=== PATIENT | female | born 1990 | race Caucasian/White ===

== ENCOUNTER 2021-05-19 07:40 | Outpatient (CLI) | payer OTHER, SELFPAY ==
--- NOTE | ~2021-05-19 | XR_ITS ---
EXAMINATION: XR UGIAC wo kub DATE: 05/19/2021 08:48 INDICATION: Gastroesophageal reflux TECHNIQUE: Thick barium contrast with gas effervescent crystals were administered orally. Fluoroscop ic images of the esophagus, stomach, and proximal duodenum were obtained in various projections. The reafter, overhead images of the abdomen were performed. 0.8 minutes of fluroscopy. 56 fluoroscopic im ages. FINDINGS: The esophagus is normal in caliber, without mucosal lesions or strictures. There is normal esophagea l peristalsis. There is a small hiatal hernia. *Esophageal reflux witnessed during the course of the study. The gastric folds are normal. The proximal duodenum is also normal in appearance. IMPRESSION: 1. Small sliding hiatal hernia with gastroesophageal reflux. Reviewed, dictated and finalized at location A. SON OFFICER
--- NOTE | ~2021-05-19 | XR_ITS ---
EXAMINATION: XR chest 2V EXAM DATE: 05/19/2021 08:51 INDICATION: SOB TECHNIQUE: Frontal and lateral projections of the chest obtained and reviewed. There is no prior shonna dy for comparison. FINDINGS: The lungs are clear. There are no pleural effusions. The cardiomediastinal silhouette is within normal limits. There is no pneumothorax suspected. The bones and soft tissues are unremarkab le. Barium within the stomach from upper GI performed same time. IMPRESSION: Normal chest x-ray exam. Reviewed, dictated and finalized at location B. OR QUALITATIVE RESEARCHER IMPRESSION: Normal chest x-ray exam.
== END 2021-05-19 07:41 | disposition home or self-care (01) ==
PROVIDERS: PCP Emergency Medicine; Visit Provider Emergency Medicine
DX: K21.9 Gastro-esophageal reflux disease without esophagitis (principal); K44.9 Diaphragmatic hernia without obstruction or gangrene
CPT/HCPCS: 71046; 74246

== ENCOUNTER 2023-04-28 10:39 | Emergency (ER) | payer OTHER, SELFPAY ==
--- NOTE | 2023-04-28 10:41 | ED.URI ---
HPI - URI/Sore Throat General Chief Complaint: Upper Respiratory Infection Stated Complaint: SORE THROAT/COUGH Time Seen by Provider: 04/28/23 10:53 Source: patient and RN notes reviewed Mode of arrival: ambulatory Limitations: no limitations History of Present Illness HPI Narrative: 33-year-old female presents with concern for 2-3 day history of sore throat, headache, body aches, fatigue, productive cough, low-grade temperature. Reports she has been taking Tylenol. Reports she traveled recently. MD elicited complaint: cough and sore throat Related Data Allergies Allergy/AdvReac Type Severity Reaction Status Date / Time No Known Allergies Allergy Verified 04/28/23 10:54 Review of Systems Review of Systems: CONSTITUTIONAL: Reports malaise, fatigue fever. EYES: Denies visual changes, redness, or discharge. ENT: Reports rhinorrhea, congestion, sinus pain, otalgia and sore throat. CARDIOVASCULAR: Denies chest pain, palpitations, or edema. RESPIRATORY: Reports cough. Denies dyspnea. GASTROINTESTINAL: Denies abdominal pain, nausea, vomiting, diarrhea SKIN: Denies rash or itching. MUSCULOSKELETAL: Reports myalgia. NEUROLOGIC: Reports headache. All systems reviewed & are unremarkable except as noted in HPI and below PMFSH Comments At time of signature, agree with nursing past medical, surgical, social and family history. There is no relevant family history pertinent to the presenting complaint Exam Narrative: GENERAL: Well-appearing, well-nourished, and in no acute distress. HEAD: Normocephalic EYES: PERRLA, conjunctivae clear ENT: Nares clear, turbinates edematous and erythematous, clear discharge. Mucous membranes moist. TM pearly parada with dull light reflex bilaterally; no tragal tenderness. Oropharynx not erythematous without lesions. Tonsils not enlarged and without exudate, no drooling, no hoarseness, no trismus, uvula midline. NECK: Supple. No lymphadenopathy CHEST: Clear to auscultation, breath sounds equal. No wheezing, rhonchi, rales, or stridor. No respiratory distress, speaks in full sentences. HEART: Regular rate and rhythm. No murmur heard. SKIN: Warm, dry, no rash. NEURO: Alert and oriented x3. PSYCH: Normal mood and affect Course Course Emergency Course: Patient is aware of diagnosis, understands and agrees to treatment plan. Anticipatory guidance given. Patient agrees to follow-up as directed and is aware of reasons to seek care at the emergency department. Portions of this record may have been created with voice recognition software Level of Care: [facility] Visit Vital Signs Vital signs: Reviewed. MDM - URI/Sore Throat MDM Narrative Medical decision making narrative: Differential diagnosis considered: [place] virus, strep pharyngitis, allergic rhinitis, upper respiratory tract infection, sinusitis, rhinosinusitis, nasopharyngitis. viral pharyngitis, otitis media, otitis externa, pneumonia, bronchitis, viral cough syndrome, viral syndrome, and influenza. Exam findings show no acute concerns or changes; patient is non-toxic appearing and is in no distress. Patient is appropriate for outpatient treatment and follow-up. Lab Data Attestation: I reviewed the patient's lab results. Critical Care Time Critical Care Time Critical Care Time: No Discharge Plan Discharge Clinical Impression: Upper respiratory infection Patient Disposition: Home, Self-Care Condition: Stable Instructions: Upper Respiratory Infection (ED) Additional Instructions: Your rapid COVID and flu tests are negative Your rapid strep swab was negative today at [facility]. A throat culture will be sent to the laboratory for further testing. If the test is positive, you will receive a phone call within 48 hours and an appropriate antibiotic will be initiated at that time. Your symptoms are likely due to a viral illness, which is not treated with antibiotics. Viral symptoms can be present for up to a few weeks.
[2023-04-28 10:45] VITALS: BP 110/80; PULSE 120; RESP 16; TEMP 37.2; O2SAT 99
== END 2023-04-28 11:08 | disposition home or self-care (01) ==
PROVIDERS: Emergency Provider Nurse Practitioner; PCP Emergency Medicine
DX: J06.9 Acute upper respiratory infection, unspecified (principal)
CPT/HCPCS: 87081; 87804; 87880; 99213; G0463

== ENCOUNTER 2024-03-29 15:10 | Outpatient (CLI) | payer OTHER, SELFPAY ==
[2024-03-29 16:23] LABS: Thyroid Stimulating Hormone 0.974 uIU/mL (0.465-4.680)
[2024-03-29 19:25] LABS: Hemoglobin A1C 4.3 % (<5.7)
[2024-03-31 04:47] LABS: Progesterone 2.2 ng/mL
[2024-04-02 16:09] LABS: Anti Mullerian Hormone,Female 0.38 ng/mL (0.36-10.07)
== END 2024-03-29 15:11 | disposition home or self-care (01) ==
LOC: ANHLAB 15:11
PROVIDERS: PCP Emergency Medicine; Visit Provider Student in an Organized Health Care Education/Training Program
DX: N96 Recurrent pregnancy loss (principal)
CPT/HCPCS: 36415; 82670; 83001; 83036; 84144; 84403; 84443

== ENCOUNTER 2024-05-01 16:52 | Outpatient (CLI) | payer OTHER, SELFPAY ==
--- OUTSIDE RECORDS SUMMARY | 2024-05-01 16:56 | XMS_ITS | Continuity of Care Document ---
Author Organization [facility] Address [address] [place] [address] [place] [address] Phone Care Team Providers Care Back Tender Insulation Board Name Role Phone Tristan Colunga MD Unavailable Unavailable Allergies, Adverse Reactions, Alerts Substance Reaction Status Criticality No Known Allergies Active No Inform ation Medications Medication Instructions Dosage Effective Dates (start - stop) Status Comments buspirone 5 mg tablet take 1 tablet by oral route 2 times every day 5 MG - Active for anxiety, avoid driving or operate machines omeprazole 40 mg capsule,delayed release take 1 capsule by oral route every day before a meal 40 MG - Active Ventolin HFA 90 mcg/actuation aerosol inhaler inhale 2 puff by inhalation route every 4 - 6 hours as needed as needed - Active PRN for sob Procedures Procedure Date OFFICE/OUTPATIENT VISIT, EST OFFICE/OUTPATIENT VISIT, EST OFFICE/OUTPATIENT VISIT, EST OFFICE/OUTPATIENT VISIT, EST OFFICE/OUTPATIENT VISIT, EST PREV VISIT, NEW, AGE 18-39 Advance Directives Directive Yes / No Effective Date File Name No Information Encounters Encounter Description Practice Location Reason(s) For Visit Diagnoses Date Provider Providers Copied on Encounter OFFICE/OUTPA TIENT VISIT, EST [facility], [address] [place], [id number], tel:[phone] [facility] sore throat1 (chief complaint) sob (chief complaint) Acute pharyngitisDyspnea 2 Keanu Hudson. [address] [place], [id number] , [place]. tel:[phone] OFFICE/OUTPA TIENT VISIT, [facility], [address] [place], [id number], tel:[phone] [facility] GERD1 (chief complaint) sob1 (chief complaint) anxiety1 (chief complaint) Chest painGERD w/o esophagitisDyspneaG eneralized Anxiety Disorder 2 Keanu Hudson. [address], [place], [place], [id number] , [place]. tel:[phone] OFFICE/OUTPA TIENT VISIT, [facility], [address] [place], [address], tel:[phone] [facility] fatigue1 (chief complaint) sob (chief complaint) chest pain1 (chief complaint) GERD1 (chief complaint) Chest painDyspneaGERD w/o esophagitisSleep apnea 2 Keanu Hudson. [address], [place], [place], [id number] , [place]. tel:[phone] OFFICE/OUTPA TIENT VISIT, [facility], [address] [place], [address], [place] tel:[phone] [facility] fatigue1 (chief complaint) anxiety1 (chief complaint) GERD1 (chief complaint) iron (chief complaint) FatigueGERD w/o esophagitisGenerali zed Anxiety DisorderDisorder of iron metabolism, unspecified 2 Keanu Hudson. [address], [place], [place], [address] , [place]. tel:[phone] OFFICE/OUTPA TIENT VISIT, [facility], [address] [place], [id number], [place] tel:[phone] [facility] anxiety1 (chief complaint) GERD1 (chief complaint) chest pain1 (chief complaint) sob1 (chief complaint) Generalized Anxiety DisorderDyspneaGERD w/o esophagitisChest painFatigue 2 Keanu Hudson. [address], [place], [place], [id number] , [place]. tel:[phone] PREV VISIT, NEW, AGE 18-39 [facility], [address], [place], [place], [id number], [place] tel:[phone] [facility] physical (chief complaint) Encounter for general adult medical examination without abnormal findings 2 Keanu Hudson. [address], [place], [place], [address] , [place]. tel:[phone] Family History Family Member Type Diagnosis Age At Onset Mother Problem Alive and well Sister Problem Alive and well Father Problem Alive and well Payers Payer name Insurance type Covered green party ID Authoriza tion(s) No Information Social History Type Description Quantity Date Captured Comments Alcohol Use Details beer & wine Caffeine Use Details Unknown Tobacco Use Status Smoker Smoking Status Current every day smoker 2021 Sex Female Vital Signs Date / Time: Height Weight BMI Pulse Rate Blood Pressure Temperature Respiratory Rate Body Surface Area Head Circumference BMI percentile Pulse Ox Inhaled Ox 4:05 PM 64.00 in 136.00 lbs 23.3 4 kg/m eter (2) 61 /min 110/66 mm[Hg] 98.5 F 16 /min Chief Complaint And Reason For Visit From encounter dated '12/02/2021 16:04'. sore throat1 (chief complaint). Description: Pt c/o acute sore throat since this morning and uvula swelling Pt denies any dysphagia. Pt denies any fever, headache ,sinus, cough, sob, rash, abd pain, etc, Pt denies any dysphagia. Pt states that the uvula swelling resolved now but she still thinks that it appears slightly red sob (chief complaint). Description: Pt states that sob is not bad. She did not do chest CT or try inhaler .Pt denies any chest pain. Pt will do stress test in two days Plan Of Treatment Date Type Action Status Referral Ordered: Cardiology (related to Chest pain) ordered Referral Ordered: Referrals: Cardiology. Evaluate and treat ordered Referral Ordered: CT PULMONARY ordered Referral Ordered: SLEEP STUDY, ATTENDED ordered Referral Ordered: UPPER GI W/ KUB ordered Referral Ordered: CHEST X-RAY PA/LAT TWO-VIEWS ordered History Of Present Illness Encounter Date Complaint History Of Prese nt Illness sore throat1 Pt c/o acute sor e throat since this morning and uvula swelling Pt denies any dysphagia. Pt denies any fever, headache ,sinus, cough, sob, rash, abd pain, etc, Pt denies any dysphagia. Pt states that the uvula swelling resolved now but she still thinks that it appears slightly red sob Pt states that s ob is not bad. She did not do chest CT or try inhaler .Pt denies any chest pain. Pt will do stress test in two days GERD1 Pt has chronic G ERD. Pt has HH. Pt has been taking omeprazole PRN only and doing ok. Pt denies any abdominal pain. sob1 Pt has intermitt ent sob, worse at night. Pt denies any exertional dyspnea .Pt states that the dyspnea seems worse at night .Pt denies any wheezing .Pt denies any calf pain Pt denies any recent travel or bedrest. Pt has very mild sob during the day but not as bad. Pt denies any calf pain. Pt denies any recent travel. Pt denies any calf pain. Pt has not been taking buspar for several days and she actually has not felt sob or chest pain. Pt also saw cardiology and she had negative EKG and she will do cardiac echo soon. Pt has not done chest Ct yet. Pt never picked up flovent. anxiety1 Pt has mild anxi ety Pt denies any depression or any suicidal or homicidal thought . Pt has not been taking buspar for several days since running out and her anxiety is not too bad. Pt wants to have buspar just in case but she has not been taking it. sob Pt has intermitt ent sob, worse at night. Pt denies any exertional dyspnea .Pt states that the dyspnea seems worse at night .Pt denies any wheezing .Pt denies any calf pain Pt denies any recent travel or bedrest. Pt has very mild sob during the day but not as bad. Pt denies any calf pain. Pt denies any recent travel fatigue1 Pt c/o chronic f atigue. Pt denies any dizziness. Pt denies any orthostasis. Pt has mild sleep apnea . chest pain1 Pt c/o intermitt ent left side chest pain which is dull in nature Pt denies any exertional chest pain. Pt denies any sob with chest pain GERD Pt has HH with r eflux. Pt states that omeprazole is only helping slightly but not all the time. Pt has been taking omeprazole OTC. pt states that omeprazole is very expensive even with good rx coupon fatigue1 Pt feels chronic fatigue. Pt is not sure if she snores. Pt wakes up feeling tired and she feels tired throughout the day. Pt also feels slightly sob throughout the day. Pt sometimes wakes up in the middle of night feeling panic with sob. Pt denies any chest pain. Pt does feel mild sob during day and is non exertional related .Pt denies any chest pain GERD Pt has chronic G ERD. Pt does have HH. Unfortunately none of the PPI is covered by her insurance .Pt states that she changed her diet and she is actually doing better in terms of the GERD. Pt only takes tums 2-3 per day iron Pt has high iron saturation. Pt denies any family history of blood disease. Pt has normal hemoglobin. anxiety1 Pt has chronic a nxiety Pt denies any depression or any suicidal or homicidal thought. Pt is on buspar and doing well anxiety1 Pt has chronic a nxiety Pt denies any depression or any suicidal or homicidal thought pt denies any crying spells ,Pt started to take buspar BID during last month and it really helped her anxiety. Pt denies any side effects. GERD1 Pt has chronic G ERD Pt denies any nausea, vomiting, appetite loss or early satiety. Pt did not try protonix due to lack of insurance coverage. Upper GI showed small HH and GERD chest pain1 Pt has persisten t left upper chest wall pain for several years Pt denies any exertional chest pain ,Pt denies any chest pain with physical activity Pt states that she can reproduce the pain when she pushes the area . sob1 Pt feels frequen t sob, pt denies any calf pain or any exertional sob Pt feels not getting enough air and she has to take deeper breath. Pt started to have above for several months Pt states that the sob is definitely worse at night when she lie flat. Pt denies any snoring. Pt denies any waking up at night with trouble breathing. pt does have chronic fatigue. physical Pt needs annual physical. Pt c/o persistent left side chest pain above left breast for 6 months ,Pt feels dull pain. pt denies any exertional related pain Pt states that the pain is persistent at all time. Pt states that ibuprofen makes the pain better. Pt also has chronic GERD x 6 years. Pt has been taking zantac but not helping .Pt denies any nausea, vomiting, abdominal pain. Pt feels daily reflux and she has frequent burping. Pt states that the GERD is worse at night when she lie flat. pt went to urgent care 6 months ago for left side chest pain and she was told that she has inflammation of chest wall from GERD and she has been taking ibuprofen frequently along with zantac daily but has not been improving her overall symptoms .Pt also notices mild sob during last month. Pt feels sob all the time but seems worse when she lie down. Pt denies any wheezing. pt denies any relationship with the chest pain. Pt denies any calf pain Pt denies any recent travel or bedrest. Pt denies any fever ,cough. Instructions Date Instruction Additional Infor mation No Information Assessments Type Assessment Date assessment Acute pharyngitis assessment Dyspnea Mental Status Date Cognitive Assessment Orientation - [place] ed to time, place, person, situation.
--- OUTSIDE RECORDS SUMMARY | 2024-05-01 16:56 | XMS_ITS | Clinical Summary ---
Author Organization [facility] Address [address] [place] [address] Care Team Providers Care Best Worker Name Role Phone Tristan Colunga MD Primary Care Provider [phone] Allergies No known active allergies Medications albuterol sulfate HFA 108 (90 Base) MCG/ACT inhaler Inhale 2 puffs into the lungs every 6 (six) hours as needed. 05/13/2021 Active Active Problems Problem Noted Date Diagnosed Date Chest pain 09/03/2021 Rapid heart beat 09/03/2021 Family History Medical History Relation Comments Stroke Paternal Grandfather Relation Status Comments Paternal Grandfather Alive Social History Tobacco Use Types Packs/Day Years Used Date Smoking Tobacco: Former Cigarettes Q uit: 2018 Smokeless Tobacco: Never Alcohol Use Standard Drinks/Week Comments Yes 3.3 (1 standard drink = 0.6 oz p ure alcohol) Red wine 2-3 x a week Comments Unknown Sex and Gender Information Value Date Recorded Sex Assigned at Not on file Legal Sex Female 9:53 AM CDT Gender Identity Not on file Sexual Orientation Straight 09/02/2021 8: 57 AM CDT Last Filed Vital Signs Vital Sign Reading Time Taken Comments Blood Pressure 96/64 12/21/2022 9:04 AM CDT Pulse 73 12/21/2022 9:04 AM CDT Temperature - - Respiratory Rate - - Oxygen Saturation 98% 12/21/2022 9:04 AM CDT Inhaled Oxygen Concentration - - Weight 61.1 kg (134 lb 12.8 oz) 12/21/2022 9:04 AM CDT Height 162.6 cm (5' 4 ) 12/21/2022 9:04 AM CDT Body Mass Index 23.14 12/21/2022 9:04 AM CDT Plan of Treatment Health Maintenance Due Date Last Done Comments Annual Physical 1994 Hepatitis C 2009 DTaP, Tdap and Td Vaccines ( 1 - Tdap) 2010 Hepatitis B Vaccines (1 of 3 - 19+ 3-dose series) 2010 Cervical Cancer Screening Pa p with HPV Testing (Age 30 to 64) Every 5 Years 2021 COVID-19 Vaccine (1 - 2023-2 5 season) 2023 Influenza Adult (#1) 2023 Cervical Cancer Screening Pa p Smear (Age 30 to 64) Every 3 Years 06/02/2025 06/02/2022 Cervical Cancer Screening with HPV 06/02/2025 HPV Vaccines Aged Out No longer eligi ble based on patient's age to complete this topic Meningococcal B Vaccine Aged Out No l onger eligible based on patient's age to complete this topic Meningococcal Vaccine Aged Out No kelsie juan pablo eligible based on patient's age to complete this topic Pneumococcal Vaccine: Pediat rics (0 to 5 Years) and At-Risk Patients (6 to 64 Years) Aged Out No longer eligi ble based on patient's age to complete this topic RSV Immunizations Under 20 Months Aged Out No longer eligible based on patient's age to complete this topic Insurance Care Teams Best Worker Relationship Specialty Start Date End Date Tristan Colunga MD PCP - General FAMILY PRACTICE 08/28/21
[2024-05-04 10:43] LABS: PS/PT AB IgG <9 U (< OR = 30); PS/PT AB IgM 11 U (< OR = 30)
== END 2024-05-01 16:53 | disposition home or self-care (01) ==
LOC: ANHLAB 16:54
PROVIDERS: PCP Emergency Medicine; Visit Provider Student in an Organized Health Care Education/Training Program
DX: N96 Recurrent pregnancy loss (principal)
CPT/HCPCS: 36415; 86146

== ENCOUNTER 2024-05-24 09:22 | Outpatient (CLI) | payer OTHER, SELFPAY ==
--- NOTE | ~2024-05-24 | US_ITS ---
EXAMINATION: US pelvic complete w TV DATE: 05/24/2024 09:44 INDICATION: Encounter for other general counseling. TECHNIQUE: Multiple transabdominal and transvaginal sonographic images of the pelvis were obtained. COMPARISON: None. FINDINGS: TRANSABDOMINAL ULTRASOUND: The uterus measures 8.3 x 5.3 x 4.4 cm. There is no free fluid in the pelvis. TRANSVAGINAL ULTRASOUND: The endometrial complex measures 5 mm in thickness. There is a 10 mm intramural fibroid. The right ov amy measures 2.1 x 1.7 x 1.2 cm. The left ovary measures 3.1 x 2.2 x 1.4 cm. There is normal vascular flow in the ovaries. IMPRESSION: 1. Uterine fibroid. Reviewed, dictated and finalized at location A. NE PHARMACOLOGY TECHNICIAN IMPRESSION: 1. Uterine fibroid.
== END 2024-05-24 09:23 | disposition home or self-care (01) ==
PROVIDERS: PCP Student in an Organized Health Care Education/Training Program; Visit Provider Student in an Organized Health Care Education/Training Program
DX: D25.1 Intramural leiomyoma of uterus (principal); Z31.69 Encounter for other general counseling and advice on procreation
CPT/HCPCS: 76830; 76856

== ENCOUNTER 2024-11-09 10:50 | Outpatient (CLI) | payer OTHER, SELFPAY ==
--- OUTSIDE RECORDS SUMMARY | 2024-11-09 11:35 | XMS_ITS | Clinical Summary ---
Author Organization [facility] Address [address] [place] [address] Care Team Providers Care Drywall Sander Name Role Phone Tristan Colunga MD Primary Care Provider [phone] Allergies No known active allergies Medications albuterol [...] 9:04 AM CDT Height 162.6 cm (5' 4) 12/21/2022 9:04 AM CDT Body Mass Index 23.14 12/21/2022 9:04 AM CDT Plan of Treatment Health Maintenance Due Date Last Done Comments Annual Physical 1994 Hepatitis C 2009 DTaP, Tdap and Td Vaccines ( 1 - Tdap) 2010 Hepatitis B Vaccines (1 of 3 - 19+ 3-dose series) 2010 HPV Vaccines (1 - 3-dose SCD M series) 2018 Cervical Cancer Screening Pa p with HPV Testing (Age 30 to 64) Every 5 Years 2021 COVID-19 Vaccine (1 - 2023-2 5 season) 2023 Cervical Cancer Screening Pa p Smear (Age 30 to 64) Every 3 Years 06/02/2025 06/02/2022 Cervical Cancer Screening with HPV 06/02/2025 Meningococcal B Vaccine Aged Out No l onger eligible based on patient's age to complete this topic Meningococcal Vaccine Aged Out No kelsie juan pablo eligible based on patient's age to complete this topic Pneumococcal Vaccine: Pediat rics (0 to 5 Years) and At-Risk Patients (6 to 49 Years) Aged Out No longer eligi ble based on patient's age to complete this topic RSV Immunizations Under 20 Months Aged Out No longer eligible based on patient's age to complete this topic Insurance [facility] Care Teams Drywall Sander Relationship Specialty Start Date End Date Tristan Colunga MD PCP - General FAMILY PRACTICE 08/28/21
[2024-11-09 11:38] LABS: Hematocrit 38.6 % (37.0-47.0); Hemoglobin 12.9 g/dL (12.0-15.0); Immature Granulocyte Percent A 0.2 % (0-0.5); Lymphocytes Absolute Auto 3.35 K/mm3 (0.9-3.2); Mean Corpuscular HGB Conc 33.4 g/dl (32-36); Mean Corpuscular Hemoglobin 30.5 pg (26-34); Mean Corpuscular Volume 91.3 fl (80-100); Nucleated Red Blood Cells Absolute Auto 0.000 K/mm3 (0.0-0.012); Nucleated Red Blood Cells Perc 0.0 % (0.0-0.2); Platelet Count Result 355 k/mm3 (150-375); Red Blood Count 4.23 M/mm3 (4.2-5.4); White Blood Count 12.5 K/mm3 (4.5-10.0)
[2024-11-09 12:01] LABS: Iron 64 ug/dL (37-170)
[2024-11-09 12:13] LABS: Percent Iron Saturation 23 % (20-50)
[2024-11-09 12:18] LABS: Beta HCG Quantitative < 2.39 mIU/ML
[2024-11-09 12:44] LABS: Ferritin 26.10 ng/mL (6.24-137); Thyroid Stimulating Hormone Reflex 1.290 uIU/mL (0.465-4.68)
[2024-11-10 07:09] LABS: FSH 6.7 mIU/mL (.); LH 5.6 mIU/mL (.)
[2024-11-16 00:07] LABS: Free Testosterone (Direct) 0.3 pg/mL (0.0-4.2)
[2024-11-17 09:08] LABS: Estradiol, Sensitive 118.9 pg/mL (.)
== END 2024-11-09 10:51 | disposition home or self-care (01) ==
LOC: ANHLAB 10:51
PROVIDERS: PCP Emergency Medicine; Visit Provider Obstetrics & Gynecology
DX: N96 Recurrent pregnancy loss (principal)
CPT/HCPCS: 36415; 82166; 82627; 82670; 82728; 83001; 83002; 83525; 83527; 83540; 83550; 84144; 84146; 84270; 84402; 84403; 84443; 84702; 85025